=== PATIENT | female | born 1955 | race Caucasian/White ===

== ENCOUNTER → 2017-02-16 | Outpatient (CLI) | payer MEDICARE, MEDICAID ==
[~2017-02-16] MED LIST: ALDACTONE DPS25 MG PO; AMITIZA24 MCG PO; ASA CHILDREN'S81 MG PO; ATIVAN-DPS1 MG PO; COLACE-DPS100 MG PO; COZAAR DPS50 MG PO; CYMBALTA60 MG PO; DELTASONE DPS5 MG PO; FOLVITE-DPS1 MG PO; GLUCOPHAGE-DPS500 MG PO; HYDROCODONE 5MG/5 MG PO; LAMICTAL DPS100 MG PO; LIPITOR DPS20 MG PO; MILK OF MA400 MG/5 M PO; MYSOLINE50 MG PO; NEURONTIN DPS300 MG PO; PRILOSEC DPS20 MG PO; PROAIR HFA8.5 GM IH; SENOKOT S1 TAB PO; THERAPEUTIC MUL1 TAB PO; ULTRAM DPS50 MG PO; VALIUM-DPS2 MG PO; VITAMIN D31000 UNIT PO; ZYRTEC DPS10 MG PO
== END | disposition home or self-care (01) ==
LOC: RAD.S 12:40
DX: Z12.31 Encounter for screening mammogram for malignant neoplasm of breast (principal)